=== PATIENT | male | born 2000 | race Caucasian/White ===

== ENCOUNTER 2022-11-04 06:53 | Emergency (ER) | payer OTHER, SELFPAY ==
[2022-11-04 06:58] VITALS: BP 144/81; PULSE 75; RESP 16; TEMP 36.8; O2SAT 100
--- NOTE | 2022-11-04 07:00 | DI.CT_ITS ---
Exam(s) CT CERVICAL SPINE WO CT THORACIC LUMBAR SPINE WO EXAM: CT CERVICAL SPINE, thoracic and lumbar spines WO CLINICAL HISTORY: fell 7 ft on back/neck, tender T1 and L4. TECHNIQUE: Imaging Protocol: Axial computed tomography images with coronal and sagittal reformatted images were created and reviewed COMPARISON: No exams were available for comparison FINDINGS: CT cervical spine without: Bones: No acute fracture or subluxation. Soft Tissues: Unremarkable. Lung Apices: Clear. CT lumbar spine without: Bones: There is a mild compression for fracture of the superior endplate of L1. There is loss of les s than 10 percent of the height of the vertebral body. No retropulsion or central spinal canal steno sis is seen. Soft tissues: Unremarkable. Lungs: Clear. CT thoracic spine without: Bones: There is a mild compression of the superior endplate of T12. There is loss of less than 10 pe rcent of the height of the vertebral body. No retropulsion or central spinal canal stenosis is seen. Soft tissues: Unremarkable. Lungs: Clear. IMPRESSION: 1. No acute fracture or subluxation in the cervical spine. 2. Mild compression fractures of the superior endplates of T12 and L1. 3. Findings were discussed with Dr. Irizarry at 8:38 a.m. on 11/04/2022. RADIATION DOSE DELIVERED: 510.21mGy.cm Total DLP 510.21mGy.cm Total DLP 510.21mGy.cm Total DLP DATA REPOSITORY: All CT scans at this facility are submitted to the National Radiology Data Registry (NRDR) Dose Index Registry (DIR) with the [employer] ([employer]). RADIATION OPTIMIZATION: All CT scans at this facility use at least one of these dose optimization te chniques: automated exposure control; mA and/or kV adjustment per patient size (includes targeted exa ms where dose is matched to clinical indication); or iterative reconstruction.
--- NOTE | 2022-11-04 07:16 | ED.GENADUL_ITS ---
Discharge Plan Discharge Details Chief Complaint: Trauma ED Provider: Raúl Heredia Medical Decision Making 22-year-old male with no significant past medical history presents today for back pain. Patient states that 3 days ago he was doing a flip on his pull-up bar on the pull-up bar fell and he fell down 7 feet landed directly on his upper back. He had immediate pain then, it has continued and worsened over the last 3 days but has now transition to lower lumbar pain as well. Patient denies any saddle anesthesia, numbness or tingling in the groin, change in sensation when wiping. Patient denies any change in sensation during sexual intercourse, difficulty achieving or maintaining an erection or ejaculation, bowel or bladder incontinence, leakage, or retention. Patient denies any weakness in the lower extremities, atypical falls or imbalance. He does admit to feeling quite shaky. Pain in his back is worsened with movement. He has taken Tylenol and Motrin with minimal improvement. Exam demonstrates notable tenderness over T1, T2 and T3, as well as L4. This tenderness is midline. Concern for spinal fracture. We will get CT imaging secondary to the notable mechanism and distance, as well as the pain and physical exam findings. Will give Tylenol and Motrin. Symptoms inconsistent with cauda equina syndrome clinically at this time. Case will be signed out to my colleague Dr. Irizarry for follow-up on imaging. Sign Out Yes HPI General Date/Time Provider Initiated Documentation: 11/04/22 06:58 . HPI Narrative: 22-year-old male with no significant past medical history presents today for back pain. Patient states that 3 days ago he was doing a flip on his pull-up bar on the pull-up bar fell and he fell down 7 feet landed directly on his upper back. He had immediate pain then, it has continued and worsened over the last 3 days but has now transition to lower lumbar pain as well. Patient denies any saddle anesthesia, numbness or tingling in the groin, change in sensation when wiping. Patient denies any change in sensation during sexual intercourse, difficulty achieving or maintaining an erection or ejaculation, bowel or bladder incontinence, leakage, or retention. Patient denies any weakness in the lower extremities, atypical falls or imbalance. He does admit to feeling quite shaky. Pain in his back is worsened with movement. He has taken Tylenol and Motrin with minimal improvement. General Stated Complaint: Nk/Back Pain LAURE: 4 Review of Systems All systems reviewed & are unremarkable except as noted in HPI and below [facility] Social History Smoking risk assessment performed?: No Exam Narrative Exam Narrative: 1.Const: Well-nourished, Well-developed, appearing stated age 2.Eyes: PERRL, no conjunctival injection, and symmetrical lids. 3.ENT: Atraumatic external nose and ears. Moist MM. Neck: Symmetric, trachea midline, No thyromegaly. 4.CVS: +S1/S2, No murmurs or gallops. Peripheral pulses 2+ and equal in all extremities. Brisk capillary refill in all extremities. 5.RESP: Unlabored respiratory effort. Clear to auscultation bilaterally. No wheezes rales or rhonchi 6.GI: Soft, Nontender/Nondistended, No hepatosplenomegaly. No guarding or rebound. 7.MSK: Normocephalic/Atraumatic, Extremities w/o deformity or ttp No cyanosis or clubbing, Normal movement of all extremities Patient demonstrates midline tenderness over T1 and T2 and T3. As well as L4 from a more deep-seated component.. Normal ROM in flexion, extension, side bend, and rotation. Patient has +5 out of 5 strength in the lower extremities in dorsiflexion and plantarflexion, knee flexion and extension, hip flexion and extension. Normal strength for dorsiflexion and plantar flexion of the great toe bilaterally. There is +2 over 2 dorsalis pedis pulses bilaterally. There is normal sensation to the skin with light touch at the foot, knee, and hip. Normal saddle sensation. Good sensation over the deep sural nerve area bilaterally. Rectal exam deferred. Reflexes are +2 over 4 in the patellar reflex bilaterally. +5 out of 5 strength in the medial, ulnar, radial nerve distribution bilaterally in the hands as well as intact light touch sensation to these dermatomes on the hands 8.Skin: Warm, Dry. No rashes or lesions. 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 Sensation grossly intact, no focal neurologic deficits. 10.Psych: (AAO) x3. Appropriate mood and affect Course Vital Signs Vital signs: Vital Signs Temperature 36.8 C 11/04/22 06:58 Pulse 75 11/04/22 06:58 Respiratory Rate 16 11/04/22 06:58 Blood Pressure 144/81 H 11/04/22 06:58 Pulse Oximetry 100 11/04/22 06:58 Temperature 36.8 C 11/04/22 06:58 Temperature Source Temporal Artery Scan 11/04/22 06:58 Pulse 75 11/04/22 06:58 Respiratory Rate 16 11/04/22 06:58 Respiratory Effort 11/04/22 06:58 Blood Pressure 144/81 H 11/04/22 06:58 Blood Pressure Position Sitting 11/04/22 06:58 Pulse Oximetry 100 11/04/22 06:58 Oxygen Delivery Method Room Air 11/04/22 06:58 Oxygen Flow Rate 0 11/04/22 06:58 Pain Level 8 11/04/22 06:58 PAWSS Have you Been Recently Intoxicated or Drunk Within the Last 30 days?: Yes Positive Blood Alcohol level on Presentation? [PCS.BAL]: No Evidence of Increased Autonomic Activity (i.e. HR>120, tremor, sweating, agitation, nausea)?: No Result: 1
[2022-11-04] MEDS: Ibuprofen 800 MG TAB PO (08:01)
[2022-11-04] MEDS: Acetaminophen 500 MG TAB 1000 MG PO (08:01)
--- NOTE | 2022-11-04 09:29 | W.EDPROG ---
Date of service: 11/04/22 Time of Service: 09:29 Medical Decision Making pt stable, ct shows mild compression fractures of superior endplates of t12 and l1. PT stable, has full rom of his neck with no midline tenderness during this. HE has no other pain. Discussed results with pt and he states he has had trouble sleeping due to the pain. Discussed risks benefits of short course of opiates and he consents to having this prescribed. He was advised to f/u with his pcp, return precautions given Imaging Data Radiologic Study: Attestation: I personally reviewed and interpreted this imaging study as follows: Imaging: CT Scan Radiologist's impression: 1. No acute fracture or subluxation in the cervical spine. 2. Mild compression fractures of the superior endplates of T12 and L1. 3. Findings were discussed with Dr. Irizarry at 8:38 a.m. on 11/04/2022. Sign Out No Sign Out Sign Out Data: Sign Out Comment: Fall, hit back, pending CT scan results Last updated by Raúl Heredia DO at 11/04/22 08:02 Discharge Plan Disposition Patient Disposition: Home Condition: Stable Discharge Details Clinical Impression: T12 compression fracture, Closed compression fracture of L1 vertebra Primary Care Provider: Millicent,Local ED Provider: Rashawn Irizarry Home Meds and New Rx's Prescriptions: New oxycodone 5 mg tablet 5 mg PO Q8H PRN (Reason: pain) Qty: 10 0RF Discharge Instructions Instructions: Vertebral Compression Fracture (ED) Additional Instructions: you can take 1000mg tylenol and 600mg ibuprofen every 6 hours as needed for pain do not drink alcohol or drive if you take the oxycodone follow up with your primary care provider within 1-2 weeks. These fractures will heal on their own if you feel more ill, have severe worsening pain or difficulty breathing return to the emergency department
[2022-11-04 09:39] VITALS: BP 122/68; PULSE 55; RESP 14; TEMP 36.9; O2SAT 100
--- NOTE | 2022-11-04 09:42 | PDOC.ERCMPRO ---
- If Service Date Differs Date of service: 11/04/22 Time of Service: 09:42 Care Management Progress Note Bright presents in the ED for mild compression fractures of superior endplates of T12 and L1. At the request of ED provider, MARGIE meets with Bright to address financial concerns. MARGIE provides Bright with a Patient Assistance Application for patients with primary insurance and advises him to contact the billing office to set up a payment plan if the remaining balance is too much for him to pay in full at once.
== END 2022-11-04 09:46 | disposition home or self-care (01) ==
PROVIDERS: Emergency Provider Emergency Medicine
DX: S22.080A Wedge compression fracture of T11-T12 vertebra, initial encounter for closed fracture (principal); S32.010A Wedge compression fracture of first lumbar vertebra, initial encounter for closed fracture; W17.89XA Other fall from one level to another, initial encounter
CPT/HCPCS: 99284; 72125; 72128; 72131; 99283